=== PATIENT | female | born 1965 | race Caucasian/White ===

== ENCOUNTER 2025-04-22 08:32 | Emergency (ER) | payer OTHER, SELFPAY ==
[2025-04-22 08:50] VITALS: BP 141/81; PULSE 98; RESP 17; TEMP 36.6; O2SAT 99; BMI 21.9
--- NOTE | 2025-04-22 08:52 | ED.GENADULT ---
HPI - General Adult General Chief complaint: Skin/Abscess/Foreign Body Stated complaint: Possible Piece of metal stuck in back of mouth Time Seen by Provider: 04/22/25 08:39 History of Present Illness HPI narrative: 59-year-old female with no significant or relevant past medical history who presents after eating a metal wire bristle from [place] 2 days ago. States she has had persistent very mild pain in the left side of her throat. denies fevers, chills, nausea, vomiting, diarrhea, abdominal pain, chest pain, shortness of breath, dizziness, headache, and urinary symptoms. Related Data Previous Rx's ?Medication ?Instructions ?Recorded amoxicillin 875 mg tablet 875 mg PO BID #20 tabs 06/01/16 hydrocodone 5 mg-acetaminophen 325 1 tab PO QHS PRN #10 tabs 06/01/16 mg tablet benzocaine 20 % mucosal gel 1 applic mucous membrane QID PRN 04/22/25 (HurriCaine) mouth irritation #4.8 grams Allergies Allergy/AdvReac Type Severity Reaction Status Date / Time No Known Drug Allergies Allergy Verified 04/22/25 08:53 Review of Systems Review of Systems ROS Unobtainable: All systems reviewed & are unremarkable except as noted in HPI and below Patient History Social History Smoking Status: Never smoker Exam Initial Vital Signs Initial Vital Signs: Vital Signs Temperature 97.8 F 04/22/25 08:50 Pulse Rate 98 H 04/22/25 08:50 Respiratory Rate 17 04/22/25 08:50 Blood Pressure 141/81 H 04/22/25 08:50 Pulse Oximetry 99 04/22/25 08:50 Oxygen Delivery Method Room Air 04/22/25 08:50 Const General: cooperative, healthy appearing, comfortable, well developed and well hydrated Nutritional Appearance: average body habitus [facility] Head: normal to inspection Ears: external ears normal Nose: external nose normal and nares normal Face and sinus: sinuses nontender, face symmetric, ecchymosis not on the right, not on the left and not bilaterally, erythema not on the right, not on the left and not bilaterally and edema not on the right, not on the left and not bilaterally Mouth: lip normal [facility] Other: Patient with a pinpoint erythema to upper left soft palate measuring approximately 3 mm Eyes General: Yes appearance normal, both eyes and all related structures Eyelids: eyelids normal Sclera: sclerae normal Pupils: PERRL Neck Neck: normal visual inspection Resp Effort & Inspection: normal respiratory effort and able to speak in complete sentences Cardio Rate: regular rate Rhythm: regular rhythm Pulses: radial pulses present GI Inspection: normal to inspection and non-distended General: bimanual renal exam normal bilaterally Back/Spine/Pelvis Back: normal to inspection Skin General: no rashes or lesions noted Neuro General: patient alert, patient awake, patient oriented x3, gait normal, moves all extremities, normal light touch, pain and propioception, no focal motor deficits and CN's II-XI intact bilaterally Cognition: normal cognition Speech: speech normal Gait: normal gait Motor: muscle tone normal throughout Sensory Exam: no sensory deficits noted Extrem General: normal to inspection Psych Appearance: grossly normal Mental Status: mental status grossly normal Speech and Movement: speech and movement normal Mood: congruent mood Attitude: cooperative Thought Process: normal Thought Content: normal Judgment: judgment good Course Course Course Narrative: Patient with isolated irritation to the throat. I considered foreign body as well as abscess. There is nothing visualized on my exam. Patient is able to swallow and take fluids no restriction in range of motion of her neck. The patient advised that there was no visible foreign body and advised to return if symptoms worsen significantly. Vital Signs Vital signs: Vital Signs - 8 hr 04/22/25 08:50 Temperature 97.8 F Pulse Rate 98 H Respiratory Rate 17 Blood Pressure 141/81 H Pulse Oximetry 99 Oxygen Delivery Method Room Air Discharge Plan Departure Patient Disposition: Home Clinical Impression: Abrasion of soft palate Activity Restrictions/Additional Instructions: Return to the emergency department for any pus drainage, fever, redness at the site, inability to swallow, inability to move your neck, or any other concern. Mientras tanto, si la herida empiece a enrojecerse, sacar pus, si tienes fiebre o cualquier otra irma, por favor vuelve a urgencias. Prescriptions: New HurriCaine 20 % gel 1 applic mucous membrane QID PRN (Reason: mouth irritation) Qty: 4.8 0RF No Action hydrocodone-acetaminophen 5 MG/325 MG tablet 1 tab PO QHS PRNQty: 10 0RF amoxicillin 875 MG tablet 875 mg PO BID Qty: 20 0RF Referrals: Bren Parisi MD [Primary Care Provider, Family Practice] Stand Alone Forms: Patient Portal/API
--- NOTE | 2025-04-22 09:01 | PC.NURSE ---
redness and mild swelling to left side of soft palate
--- OUTSIDE RECORDS SUMMARY | 2025-04-24 13:41 | XMS_ITS | Clinical Summary ---
Author Organization [facility] Address [address] [place] [address] Care Team Providers Care Chef Name Role Phone Pcp, None Selected Primary Care Provider Unavail able Allergies No known active allergies Medications No known medications Active Problems No known active problems Social History Tobacco Use Types Packs/Day Years Used Date Smoking Tobacco: Never Smokeless Tobacco: Never Comments Unknown Sex and Gender Information Value Date Recorded Sex Assigned at Not on file Legal Sex Female 4:59 PM PDT Gender Identity Not on file Sexual Orientation Not on file Last Filed Vital Signs Vital Sign Reading Time Taken Comments Blood Pressure 146/90 01/10/2024 7:56 AM PDT Pulse 82 01/10/2024 7:53 AM PDT Temperature 36.3 C (97.3 F) 01/10/2024 7:53 AM PDT Respiratory Rate 16 01/10/2024 7:53 AM PDT Oxygen Saturation 100% 01/10/2024 7:53 AM PDT Inhaled Oxygen Concentration - - Weight 69.9 kg (154 lb) 01/10/2024 7:53 AM PDT Height 167.6 cm (5' 6) 01/10/2024 7:53 AM PDT Body Mass Index 24.86 01/10/2024 7:53 AM PDT Plan of Treatment Health Maintenance Due Date Last Done Comments Breast Cancer Screening 1963 MMR Vaccines (1 of 1 - Standard series) 1964 Depression Screening (PHQ-2) 1975 Cervical Cancer Screening Combined Topic 1993 Cervical Cancer-Pap screening 1993 HPV/Cotest 1993 Colorectal Cancer Screening (Colonoscopy) 2008 Colorectal Cancer Screening (FOBT) 2008 Colorectal Cancer Screening (Fecal DNA) 2008 Colorectal Cancer Screening Combined 2008 HM Pneumococcal Adult 50+ (1 of 1 - PCV) 2013 COVID-19 Vaccine ( season) 2025 05/03/2023, 04/10/2023, 05/22/2022, Additional history exists Influenza Vaccine (#1) 2025 , 03/21/2022, 03/03/2022, Additional history exists DTaP,Tdap,and Td Vaccines (5 - Td or Tdap) 07/05/2032 07/05/2022, 03/29/2022, 09/21/2020, Additional history exists RSV Patients Over 60 years OR qualifying ( Patients) (1 - 1-dose 75+ series) 2038 Zoster Vaccines Completed 05/03/2022, 01/17/2022 HPV Vaccines Aged Out No longer eligi ble based on patient's age to complete this topic Hepatitis A Vaccines Aged Out No long er eligible based on patient's age to complete this topic Hepatitis B Vaccines Aged Out No long er eligible based on patient's age to complete this topic IPV Vaccines Aged Out No longer eligi ble based on patient's age to complete this topic Insurance [employer] * Guarantor: [facility] Account Type Relation to Patient Date of Phone Billing Address Occupational [employer] Employer 1968 [address] [place] [address] Care Teams Chef Relationship Specialty Start Date End Date Pcp, None Selected PCP - General 09/18/24
--- OUTSIDE RECORDS SUMMARY | 2025-04-24 13:41 | XMS_ITS | Clinical Summary ---
Author Organization [facility] Address [address] [place] [id number] Phone [phone] Care Team Providers Care Electronic Gluer Name Role Phone Unavailable Primary Care Provider Unavailabl e Active Problems Problem Noted Date Diagnosed Date Hx of hysterectomy 05/12/2016 Social History Tobacco Use Types Packs/Day Years Used Date Smoking Tobacco: Never Assessed Comments Unknown Sex and Gender Information Value Date Recorded Sex Assigned at Not on file Legal Sex Female 6:53 AM PDT Gender Identity Not on file Sexual Orientation Not on file Last Filed Vital Signs Vital Sign Reading Time Taken Comments Blood Pressure 136/84 04/17/2022 7:43 AM PST Pulse 76 04/17/2022 7:43 AM PST Temperature 36.6 C (97.9 F) 06/07/2016 9:26 AM PST Respiratory Rate 14 06/02/2016 9:33 AM PST Oxygen Saturation - - Inhaled Oxygen Concentration - - Weight 71.7 kg (158 lb) 04/17/2022 7:43 AM PST Height 169.5 cm (5' 6.75) 04/17/2022 7:43 AM PS T Body Mass Index 24.93 04/17/2022 7:43 AM PST Plan of Treatment Health Maintenance Due Date Last Done Comments CT Colonography 1963 FIT-DNA 1963 FIT 1963 Sigmoidoscopy 1963 HIV Screening 1978 Hepatitis C Screening 1981 Pneumococcal Vaccine: 50+ Years (1 of 1 - PCV) 2013 Mammogram 11/30/2016 11/30/2014 Zoster Vaccines (2 of 2) 05/24/2022 03/29/2022 COVID-19 Vaccine ( season) 2025 04/10/2023, 05/22/2022, 03/10/2022, Additional history exists Influenza Vaccine (#1) 2025 03/24/2020, 2018 Colonoscopy 08/30/2025 08/31/2015 Colorectal Cancer Screening 08/30/2025 DTaP/Tdap/Td Vaccines (4 - Td or Tdap) 03/29/2032 03/29/2022, 09/21/2020, 06/13/2010 RSV Vaccination aged 60+ and Patients (1 - 1-dose 75+ series) 2038 Pap Smear Discontinued 12/03/2007, 07/0 06/2007, 12/03/2007 Cervical Cancer Screening Discontinued HPV/Cotest Discontinued 05/12/2016 Diabetes: Hemoglobin A1C Discontinued 04/17/2022 HIB Vaccines Aged Out No longer eligi ble based on patient's age to complete this topic HPV Vaccines (No Doses Required) Completed Hepatitis A Vaccines Aged Out No long er eligible based on patient's age to complete this topic IPV Vaccines Aged Out No longer eligi ble based on patient's age to complete this topic Meningococcal Vaccine Aged Out No eleni volodymyr eligible based on patient's age to complete this topic Rotavirus Vaccines Aged Out No longer eligible based on patient's age to complete this topic Procedures Procedure Name Priority Date/Time Associated Diagnosis Comments GLYCOHEMOGLOBIN (A1C) Routine 04/17/2022 8:22 AM PST COLORECTAL CANCER SCREENING LONNIE CONV Routine 08/31/2015 9:39 AM PDT MAMMOGRAM LONNIE CONV Routine 11/30/2014 2:11 PM PDT PAP SMEAR ONLY Routine 12/03/2007 12:00 AM PDT from Last 3 Months or Most Recently Relevant to Health Maintenance Results * (ABNORMAL) GLYCOHEMOGLOBIN (A1C) (04/17/2022 8:22 AM PST) Hemoglobin A1C 5.9(H) 4.0 - 5.6 % LONNIE - LEGACY CONVERSION 04/17/2022 8:22 AM PST Avi Salvador DO LAB BLOOD ORDERABLES Final Resul t LONNIE - LEGACY CONVERSION * COLORECTAL CANCER SCREENING (08/31/2015 9:39 AM PDT) HM Colonoscopy Adenomatous Polyp LONNIE - LEGACY CONVERSION 08/31/2015 9:39 AM PDT us Bren Parisi MD LAB OBSERVATION METHODS Final Re sult LONNIE - LEGACY CONVERSION * MAMMOGRAPHY (11/30/2014 2:11 PM PDT) MAMMOGRAM normal LONNIE - L EGACY CONVERSION Anatomical Region Laterality Modality Radiographic Shanice ging 11/30/2014 2:11 PM PDT Kathie Sherly IMG XR PROCEDURES Final Result * PAP SMEAR ONLY (12/03/2007 12:00 AM PDT) 12/03/2007 us [facility] Conversion LAB CYTOLOGY ORDERABLES Final Result Performing Organization Address [facility]/ZIP Co de Phone Number LONNIE - LEGACY CONVERSION from Last 3 Months or Most Recently Relevant to Health Maintenance Insurance [facility]
--- OUTSIDE RECORDS SUMMARY | 2025-04-24 13:41 | XMS_ITS | Clinical Summary ---
Author Organization [facility] Address [address] [place] [address] Care Team Providers Care Locker Attendant Name Role Phone Unavailable Primary Care Provider Unavailabl e Source Comments NOTE: The information displayed by Care Everywhere is extracted from the complete medical record and may not identify all current or past patient conditions.[facility] Immunizations Immunization Administration Dates Next Due *EGG-FREE SYRINGE* FluBLOK ( 18+ yrs) RECOMBINANT QUAD 03/24/2020 *STANDARD DOSE SYRINGE* (FluLAVAL,FluZONE,FluARIX or AFLURIA) (6+ mos) QUAD 05/13/2019 Moderna SARS-CoV-2 Vaccinati on (12 + y/o) (SPIKEVAX) 04/10/2023 Moderna SARS-CoV-2 Vaccinati on (12 + y/o)(Bivalent Formulation)(BLUE CAP) 05/22/2022 Moderna SARS-CoV-2 Vaccinati on (12 + y/o)(TEXTILE CONVERTER) 11/24/2021,05/09/2021,07/16/2020,2020 Pfizer SARS-CoV-2 (COMIRNATY ) Vaccination (12 + y/o)(GARVIN CAP) 05/24/2020 Pfizer SARS-CoV-2 Vaccinatio n (12 + y/o)(Bivalent Formulation)(GARVIN CAP) 03/10/2022,04/01/2021 Td PF (Tetanus, Diphtheria, TDVAX) 09/21/2020 Tdap (Tetanus, Diphtheria, a cellular Pertussis) 06/13/2010 Typhoid, unspecified formulation 10/28/1981 Social History Tobacco Use Types Packs/Day Years Used Date Smoking Tobacco: Never Assessed Comments Unknown Sex and Gender Information Value Date Recorded Sex Assigned at Not on file Legal Sex Female 4:11 AM PST Gender Identity Not on file Sexual Orientation Not on file Plan of Treatment Health Maintenance Due Date Last Done Comments Adult HIV Screen (1-time) 1978 Hep C Screening (1-time) 1981 Breast Cancer Screening: Mammogram 2003 Vaccine: Pneumococcal (1 of 1 - PCV) 2013 Vaccine: Shingles (1 of 2) 2013 FLU VACCINE (#1) 02/02/2025 03/24/2020, 05/13/2019 Vaccine: PIfG-Vvid-Ii (3 - Td or Tdap) 09/21/2030, 06/13/2010 Vaccine: RSV (1 - 1-dose 75+ series) 2038
== END 2025-04-22 09:53 | disposition home or self-care (01) ==
PROVIDERS: Emergency Provider Emergency Medicine; PCP Family Medicine
DX: S00.512A Abrasion of oral cavity, initial encounter (principal)
CPT/HCPCS: 99281